=== PATIENT | female | born 1955 | race Caucasian/White ===

== ENCOUNTER 2017-04-21 11:40 | Observation (INO) | payer MEDICAID, OTHER ==
[~2017-04-21] VITALS: Ht 167.6 cm; Wt 58.0 kg
[2017-04-21] VITALS (8 sets, daily range): BP systolic 104–150; BP diastolic 53–63; PULSE 61–83; RESP 16–19; TEMP 98.1–98.6; O2SAT 97–99
[2017-04-21] MEDS ORDERED: SODIUM CHLOR 0.9% 1000 ML INJ 1,000 ML IV ONE ×2 (11:59→13:45)
[2017-04-21 12:31] LABS: AUTOMATED NEUTROPHIL # 4.4 TH/MM3 (1.8-7.7); BASOPHIL % 0.6 % (0.0-2.0); EOSINOPHIL # 0.1 TH/MM3 (0-0.4); EOSINOPHIL % 1.1 % (0.0-4.0); HEMATOCRIT 40.2 % (35.0-46.0); HEMO FLAGS DIFF FINAL; LYMPH % 16.8 % (9.0-44.0); MEAN CELL VOLUME 91.7 FL (80.0-100.0); MEAN CORPUSCULAR HEMOGLOBIN 30.2 PG (27.0-34.0); MONO % 8.6 % (0.0-8.0); NEUT % 72.9 % (16.0-70.0); PLATELET COUNT 196 TH/MM3 (150-450); RED BLOOD COUNT 4.39 MIL/MM3 (4.00-5.30); RED CELL DISTRIBUTION WIDTH 14.2 % (11.6-17.2)
[2017-04-21 12:32] LABS: APTT (PATIENT) 28.1 SEC (24.3-30.1); PROTHROMBIN TIME - PATIENT 10.7 SEC (9.8-11.6)
--- NOTE | 2017-04-21 12:41 | PD ---
HPI Chief Complaint: Abnormal Results Time Seen by Provider: 12:11 Travel History International Travel<30 days: No Contact w/Intl Traveler<30days: No Traveled to known affect area: No History of Present Illness HPI 61-year-old white female patient arrives in the emergency department for evaluation of hypotension. She was referred here from her primary care physician's office today. Patient is brought in by her [id number]. However patient lives with her sister who who is not present currently but is her power of process analyst. Patient has an extensive psychiatric history and is on psychiatric medication after having "a mental breakdown" in 1993. Patient denies any chest pain, shortness of breath, fever, chills, malaise or weakness. Patient denies any cardiac history but states she has a family history of heart disease. Patient denies any abdominal pain, nausea, vomiting or diarrhea. Patient states she has intermittent burning on urination for several days. No CVA tenderness, or history of nephrolithiasis. PFSH Past Medical History Arthritis: Yes Diabetes: No Medical other: Yes (PSORIASIS) Tetanus Vaccination: > 5 Years Influenza Vaccination: No ?: Not Menopausal: Yes Past Surgical History Surgical History: No Previous Surgery Social History Alcohol Use: No Tobacco Use: Yes (08/04 PPD) Substance Use: No Allergies-Medications (Allergen,Severity, Reaction): Coded Allergies: penicillin G (Unverified Allergy, Mild, 03/17/17) Reported Meds & Prescriptions Reported Meds & Active Scripts Active Review of Systems Except as stated in HPI: all other systems reviewed are Neg Genitourinary: Positive: Dysuria, Incontinence Physical Exam Exam Limitations: Poor Historian Narrative GENERAL: Well-nourished, well-developed patient 61-year-old female in no acute distress. SKIN: Focused skin assessment warm/dry. Psoriasis rash to left lateral lower back and bilateral upper extremities. HEAD: Normocephalic. Atraumatic EYES: No scleral icterus. No injection or drainage. NECK: Supple, trachea midline. No JVD or lymphadenopathy. CARDIOVASCULAR: Regular rate and rhythm without murmurs, gallops, or rubs. RESPIRATORY: Breath sounds equal bilaterally. No accessory muscle use. GASTROINTESTINAL: Abdomen soft, non-tender, nondistended. MUSCULOSKELETAL: No cyanosis, or edema. BACK: Nontender without obvious deformity. No CVA tenderness. Data Data Last Documented VS Vital Signs Date Time Temp Pulse Resp B/P (MAP) Pulse Ox O2 Delivery O2 Flow Rate FiO2 04/21/17 13:38 81 18 121/60 (80) 87 18 120/59 (79) 99 18 104/55 (71) 04/21/17 12:03 95 Room Air 04/21/17 11:42 98.6 Orders Orders Electrocardiogram (04/21/17 11:59) Complete Blood Count With Diff (04/21/17 11:59) Comprehensive Metabolic Panel (04/21/17 11:59) Prothrombin Time / Inr (Pt) (04/21/17 11:59) Act Partial Throm Time (Ptt) (04/21/17 11:59) Lactic Acid Sepsis Protocol (04/21/17 11:59) Urinalysis - C+S If Indicated (04/21/17 11:59) Blood Culture (04/21/17 11:59) Sodium Chlor 0.9% 1000 Ml Inj (Ns 1000 M (04/21/17 11:59) Orthostatic Vital Signs (04/21/17 12:48) Sodium Chlor 0.9% 1000 Ml Inj (Ns 1000 M (04/21/17 13:45) Chest, Single Ap (04/21/17 13:47) Ct Brain W/O Iv Contrast(Rout) (04/21/17 15:36) Comprehensive Metabolic Panel (04/22/17 06:00) Free Thyroxine (T4) (04/22/17 06:00) Hemoglobin (Hgb) A1c (04/22/17 06:00) Magnesium (Mg) (04/22/17 06:00) Phosphorus (Po4) (04/22/17 06:00) Thyroid Stimulating Hormone (04/22/17 06:00) Complete Blood Count With Diff (04/22/17 06:00) Place In Observation (04/21/17 ) Code Status (04/21/17 16:07) Vital Signs (Adult) Q4H (04/21/17 16:07) Neuro Checks Q4H (04/21/17 16:07) Activity Oob With Assistance (04/21/17 16:07) Vehicle Assembler / Telemetry .CONTINUOUS (04/21/17 16:07) Intake + Output PHYLICIA.QSHIFT (04/21/17 16:07) Diet Regular Basic (04/21/17 Dinner) Sodium Chlor 0.9% 1000 Ml Inj (Ns 1000 M (04/21/17 16:07) Sodium Chloride 0.9% Flush (Ns Flush) (04/21/17 16:15) Sodium Chloride 0.9% Flush (Ns Flush) (04/21/17 21:00) Acetaminophen (Tylenol) (04/21/17 16:15) Ondansetron Inj (Zofran Inj) (04/21/17 16:15) Prochlorperazine Supp (Compazine Supp) (04/21/17 16:15) Creatine Kinase (Cpk) (04/21/17 16:07) Creatine Kinase (Cpk) (04/21/17 22:07) Troponin I (04/21/17 16:07) Troponin I (04/21/17 22:07) Electrocardiogram (04/21/17 16:07) Electrocardiogram (04/21/17 22:07) Resp Oxygen Erwin C Titrat 1-4 L (04/21/17 ) Pt Request For Service (04/21/17 16:07) Ot Request For Service (04/21/17 16:07) Case Management Consult (04/21/17 16:07) Scd Bilateral/Knee High PHYLICIA.BID (04/21/17 16:07) Cem Bilateral/Knee High PHYLICIA.QSHIFT (04/21/17 16:15) Acetaminophen (Tylenol) (04/21/17 16:15) Tramadol (Ultram) (04/21/17 16:15) Tramadol (Ultram) (04/21/17 16:15) Naloxone Inj (Narcan Inj) (04/21/17 16:15) Docusate Sodium-Senna (Blanca-Colace) (04/21/17 21:00) Magnesium Hydroxide Liq (Milk Of Magnesi (04/21/17 16:15) Sennosides (Senokot) (04/21/17 16:15) Bisacodyl Supp (Dulcolax Supp) (04/21/17 16:15) Lactulose Liq (Lactulose Liq) (04/21/17 16:15) Vital Signs (Adult) Q4H (04/21/17 16:10) Sodium Chloride 0.9% Flush (Ns Flush) (04/21/17 16:15) Sodium Chloride 0.9% Flush (Ns Flush) (04/21/17 21:00) Drug Screen, Random Urine (04/21/17 16:10) Echo 2d Comp With Doppler (04/21/17 ) Us Carotid Arteries Comp Bilat (04/21/17 ) Resp Oxygen Erwin C Titrat 1-4 L (04/21/17 ) Labs Laboratory Tests Test 04/21/17 12:05 04/21/17 12:10 04/21/17 13:35 White Blood Count 6.0 TH/MM3 Red Blood Count 4.39 MIL/MM3 Hemoglobin 13.3 GM/DL Hematocrit 40.2 % Mean Corpuscular Volume 91.7 FL Mean Corpuscular Hemoglobin 30.2 PG Mean Corpuscular Hemoglobin Concent 33.0 % Red Cell Distribution Width 14.2 % Platelet Count 196 TH/MM3 Mean Platelet Volume 8.0 FL Neutrophils (%) (Auto) 72.9 % Lymphocytes (%) (Auto) 16.8 % Monocytes (%) (Auto) 8.6 % Eosinophils (%) (Auto) 1.1 % Basophils (%) (Auto) 0.6 % Neutrophils # (Auto) 4.4 TH/MM3 Lymphocytes # (Auto) 1.0 TH/MM3 Monocytes # (Auto) 0.5 TH/MM3 Eosinophils # (Auto) 0.1 TH/MM3 Basophils # (Auto) 0.0 TH/MM3 CBC Comment DIFF FINAL Differential Comment Prothrombin Time 10.7 SEC Prothromb Time International Ratio 1.0 RATIO Activated Partial Thromboplast Time 28.1 SEC Blood Urea Nitrogen 8 MG/DL Creatinine 0.49 MG/DL Random Glucose 78 MG/DL Total Protein 7.9 GM/DL Albumin 3.3 GM/DL Calcium Level 9.1 MG/DL Alkaline Phosphatase 126 U/L Aspartate Amino Transf (AST/SGOT) 28 U/L Alanine Aminotransferase (ALT/SGPT) 17 U/L Total Bilirubin 0.5 MG/DL Sodium Level 133 MEQ/L Potassium Level 4.6 MEQ/L Chloride Level 99 MEQ/L Carbon Dioxide Level 29.3 MEQ/L Anion Gap 5 MEQ/L Estimat Glomerular Filtration Rate 129 ML/MIN Lactic Acid Level 1.7 mmol/L Urine Color LIGHT-YELLOW Urine Turbidity CLEAR Urine pH 6.0 Urine Specific [place] 1.004 Urine Protein NEG mg/dL Urine Glucose (UA) NEG mg/dL Urine Ketones NEG mg/dL Urine Occult Blood NEG Urine Nitrite NEG Urine Bilirubin NEG Urine Urobilinogen LESS THAN 2.0 MG/DL Urine Leukocyte Esterase NEG Urine WBC LESS THAN 1 /hpf Urine Squamous Epithelial Cells <1 /hpf Microscopic Urinalysis Comment CATH-CULT NOT IND MDM Medical Decision Making Medical Screen Exam Complete: Yes Emergency Medical Condition: Yes Medical Record Reviewed: Yes Differential Diagnosis UTI versus sepsis versus hypertension versus arrhythmia versus dehydration Narrative Course 61-year-old female patient presents emergency department for evaluation of hypotension after being referred by her primary care. Patient was sent with a note from her primary care documenting the blood pressure taken there was 74/53 however on arrival her blood pressure in triage was 105/53. Patient denies any history of hypertension and does not believe she is on any medications that would cause hypotension. Multiple attempts were made to contact the primary care via phone but were unsuccessful. Patient denies any chest pain, shortness of breath, fevers, chills, malaise, abdominal pain, nausea, vomiting or weakness. Patient states she has had intermittent burning with urination for several days. Patient is incontinent of urine at times and wears depends. EKG , CBC, CMP, PT/INR, lactate, UA, blood cultures head CT without contrast and orthostatic vital signs ordered and pending. 1 L IV normal saline bolus ordered. Chest x-ray added per Dr. Bennett recommendation. Orthostatic vital signs showed a drop in blood pressure from supine to standing position. Another 1 L normal saline IV bolus ordered. EKG shows sinus rhythm with heart rate at 72 CBC shows no acute abnormality CMP shows hyponatremia at 133 otherwise shows no acute abnormality PT/INR shows no acute abnormality LACTIC ACID normal limits at 1.7 UA shows no acute abnormality BLOOD CULTURES ordered and pending. CXR shows no acute cardiopulmonary abnormalities CT Head shows no acute intracranial abnormality. Fluid in the right maxillary sinus most characteristic of sinusitis. Patient unable to ambulate independently with a steady gait. Patient lightheaded and dizzy when standing and walking. Residents paged for admission. Dr. Engel accepted admission. Patient will be admitted to the hospital for observation Diagnosis Primary Impression: Dizziness Additional Impression: Orthostatic hypotension Admitting Information Admitting Physician Requests: Observation Cassie Green Apr 21, 2017 12:41
[2017-04-21 13:01] LABS: ALT (GPT) 17 U/L (10-53); ANION GAP 5 MEQ/L (5-15); AST (GOT) 28 U/L (15-37); BICARBONATE 29.3 MEQ/L (21.0-32.0); BLOOD UREA NITROGEN 8 MG/DL (7-18); CHLORIDE 99 MEQ/L (98-107); GLOMERULAR FILTRATION RATE 129 ML/MIN (>89); SODIUM (NA) 133 MEQ/L (136-145)
[2017-04-21 13:02] LABS: POTASSIUM 4.6 MEQ/L (3.5-5.1)
[2017-04-21 13:03] LABS: ALKALINE PHOSPHATASE 126 U/L (45-117); TOTAL BILIRUBIN ADULT 0.5 MG/DL (0.2-1.0)
[2017-04-21 14:11] LABS: BLOOD, URINE NEG (NEG); GLUCOSE,URINE NEG (NEG); KETONE, URINE NEG (NEG); NITRITE,URINE NEG (NEG); SQUAMOUS EPITHELIAL CELL URINE <1 /hpf (0-5); URINE COLOR LIGHT-YELLOW (YELLW/STRAW)
[2017-04-21 14:16] LABS: COMMENT (UR) CATH-CULT NOT IND; CULTURE IF INDICATED CATH CULTURE NOT IND
--- NOTE | 2017-04-21 14:21 | RADRPT ---
EXAM DATE/TIME: 04/21/2017 14:04 [facility] COMPARISON: No previous studies available for comparison. INDICATIONS : High blood pressure, congestion, short of breath. MEDICAL HISTORY : Hypertension. SURGICAL HISTORY : None. ENCOUNTER: Initial ACUITY: 1 day PAIN SCORE: 0/10 LOCATION: Bilateral chest FINDINGS: A single view of the chest demonstrates the lungs to be symmetrically aerated without evidence of mas s, infiltrate or effusion. The cardiomediastinal contours are unremarkable. Osseous structures are intact. CONCLUSION: 1. No acute cardiopulmonary findings. 2. Degenerative changes in the shoulders bilaterally. Sha Torres MD on April 21, 2017 at 14:19 Board Certified Radiologist. This report was verified electronically.
--- NOTE | 2017-04-21 16:12 | RADRPT ---
EXAM DATE/TIME: 04/21/2017 15:54 [facility] COMPARISON: No previous studies available for comparison. INDICATIONS : Confusion with dizziness, low blood pressure. RADIATION DOSE: 56.35 CTDIvol (mGy) MEDICAL HISTORY : None SURGICAL HISTORY : None. ENCOUNTER: Initial ACUITY: 1 day PAIN SCALE: 4/10 LOCATION: Bilateral cranial TECHNIQUE: Multiple contiguous axial images were obtained of the head. Using automated exposure control and adj ustment of the mA and/or kV according to patient size, radiation dose was kept as low as reasonably a chievable to obtain optimal diagnostic quality images. DICOM format image data is available electro nically for review and comparison. FINDINGS: CEREBRUM: The ventricles are normal for age. No evidence of midline shift, mass lesion, hemorrhage or acute in farction. No extra-axial fluid collections are seen. POSTERIOR FOSSA: The cerebellum and brainstem are intact. The 4th ventricle is midline. The cerebellopontine angle i s unremarkable. EXTRACRANIAL: The visualized portion of the orbits is intact. Fluid in right maxillary sinus. SKULL: The calvaria is intact. No evidence of skull fracture. CONCLUSION: 1. No acute intracranial abnormality. Fluid in right maxillary sinus most characteristic of sinusitis . Deformity left mandibular head. Irineo Oneill MD on April 21, 2017 at 16:08 Board Certified Radiologist. This report was verified electronically.
[2017-04-21] MEDS ORDERED: BISACODYL 10 MG SUPP RECTAL PRN (16:15)
[2017-04-21] MEDS ORDERED: PROCHLORPERAZINE 25 MG SUPP RECTAL PRN (16:15)
[2017-04-21] MEDS ORDERED: SODIUM CHLORIDE 0.9% FLUSH 10 ML FLUSH IV FLUSH PRN ×2 (16:15)
[2017-04-21] MEDS ORDERED: SENNOSIDES 8.6 MG TAB PO PRN (16:15)
[2017-04-21] MEDS ORDERED: MAGNESIUM HYDROXIDE SUSP 30 ML CUP PO PRN (16:15)
[2017-04-21] MEDS ORDERED: LACTULOSE SYRUP 20 GM/30 ML CUP PO PRN (16:15)
[2017-04-21] MEDS ORDERED: ACETAMINOPHEN 325 MG TAB PO PRN (16:15)
[2017-04-21] MEDS ORDERED: ONDANSETRON HCL 4 MG/2 ML VIAL IVP PRN (16:15)
[2017-04-21] MEDS ORDERED: traMADol HCL 50 MG TAB PO PRN ×2 (16:15)
[2017-04-21] MEDS ORDERED: NALOXONE HCL 0.4 MG/ML AMP IV PUSH PRN (16:15)
[2017-04-21] MEDS ORDERED: BUSP30TA PO (17:02)
[2017-04-21] MEDS ORDERED: DICL75TA PO (17:02)
[2017-04-21] MEDS ORDERED: HALO5TAB PO (17:02)
[2017-04-21] MEDS ORDERED: PAXI20TA10 PO (17:02)
[2017-04-21] MEDS ORDERED: RISP4TAB41 PO (17:02)
[2017-04-21] MEDS ORDERED: ZANT150T2 PO (17:02)
--- NOTE | 2017-04-21 17:07 | HHI.HP ---
[facility]ician Unknown Admission Diagnosis dizziness, orthostatic hypertension Diagnoses: (1) Rheumatoid arthritis Diagnosis: Secondary (2) Orthostatic hypotension Diagnosis: Principal (3) Dizziness Diagnosis: Principal (4) Dehydration Diagnosis: Principal (5) Nicotine dependence Diagnosis: Secondary (6) Dysuria Diagnosis: Secondary (7) Psychotic disorder Diagnosis: Secondary Chief Complaint: Dizziness and hypotension. Travel History International Travel<30 Days: No Contact w/Intl Traveler <30 Da: No Traveled to Known Affected Are: No History of Present Illness Written by Jeferson Oquendo PA-C, acting as scribe for Dr. Tashi Engel on 04/21/17 at 16:54. Ms. Glaser is 61 years old, , with history of bilateral cataracts, psoriasis, rheumatoid arthritis, and psychotic disorder. Ms. Glaser was at her primary care physician's office (Nahid Ronquillo M.D.) for regularly scheduled appointment on 04/21/17. While there she is reported to have had a blood pressure of 80/53. Dr. Ronquillo who sent her to [facility] for further evaluation and treatment. Ms. Glaser reported that over the course of the past 2-3 years she has had difficulty with balance and has "been falling into people". She noted that her daily fluid intake is three 12 ounce bottles of water along with 1 cup of coffee in the morning as well as several sodas. She also has reported having burning urination for the last several days. Upon interview, Ms. Glaser reported dizziness, unsteady gait, and sense of weakness. She denied fever, nausea, vomiting, diarrhea, poor appetite, body aches, abdominal pain, chest pain, shortness of breath, and cough. She did endorse psoriasis "all over my body" as well as rheumatoid arthritis affecting both hands. Patient reported having broken teeth and prefers a soft diet. She stated she eats until she feels full. Medical record indicated that she is incontinent of urine and wears depends. A 10 point review of systems was conducted and, except as noted above, was negative. PT AND OT TO EVAL AND TREAT, ECHO, CAROTIDS Review of Systems Constitutional: COMPLAINS OF: Fatigue, Dizziness, DENIES: Diaphoretic episodes , Fever, Weight gain, Weight loss, Chills Endocrine: DENIES: Abnorml menstrual pattern, Heat/cold intolerance, Polydipsia Eyes: COMPLAINS OF: Vision loss (CATARACTS BL), DENIES: Blurred vision, Diplopia, Eye inflammation, Eye pain Ears, nose, mouth, throat: DENIES: Tinnitus, Hearing loss, Vertigo, Running Nose, Epistaxis, Sinus Pain Respiratory: DENIES: Apneas, Cough, Snoring, Wheezing Cardiovascular: COMPLAINS OF: Syncope, DENIES: Chest pain, Palpitations Gastrointestinal: DENIES: Abdominal pain, Black stools, Bloody stools, Constipation, Anorexia Genitourinary: COMPLAINS OF: Urgency, DENIES: Abnormal vaginal bleeding, Dysmenorrhea, Hematuria Musculoskeletal: DENIES: Joint pain, Muscle aches Integumentary: DENIES: Abnormal pigmentation, Pruritus Hematologic/lymphatic: DENIES: Bruising, Lymphadenopathy Immunologic/allergic: DENIES: Eczema, Urticaria Neurologic: DENIES: Abnormal gait, Headache, Localized weakness Psychiatric: COMPLAINS OF: Anxiety, Mood changes, Depression, DENIES: Confusion Except as stated in HPI: all other systems reviewed are Neg Past Family Social History Past Medical History bilateral cataracts, psoriasis, rheumatoid arthritis, psychotic disorder Past Surgical History Surgical history was denied. Reported Medications Reported Meds & Active Scripts Active Reported Diclofenac Sodium DR (Diclofenac Sodium) 75 Mg Tabdr 75 Mg PO BID PRN Haloperidol 5 Mg Tab 5 Mg PO HS Zantac (Ranitidine HCl) 150 Mg Tab 150 Mg PO BID Buspirone (Buspirone HCl) 30 Mg Tab 30 Mg PO TID Risperdal (Risperidone) 4 Mg Tab 2 Mg PO TID Paxil (Paroxetine HCl) 20 Mg Tablet 20 Mg PO HS Allergies: Coded Allergies: penicillin G (Unverified Allergy, Mild, 03/17/17) Active Ordered Medications Current Medications Medications (Trade) Dose Ordered Sig/Omid Route Start Time Stop Time Status Last Admin Sodium Chloride 1,000 ml @ 125 mls/hr Q8H IV 04/21/17 16:07 UNV (NS Flush) 2 ml UNSCH PRN IV FLUSH 04/21/17 16:15 UNV (NS Flush) 2 ml BID IV FLUSH 04/21/17 21:00 UNV (Tylenol) 650 mg Q4H PRN PO 04/21/17 16:15 UNV (Zofran Inj) 4 mg Q6H PRN IVP 04/21/17 16:15 UNV (Compazine Supp) 25 mg Q12H PRN OR 04/21/17 16:15 UNV (Tylenol) 650 mg Q6H PRN PO 04/21/17 16:15 UNV (Ultram) 50 mg Q4H PRN PO 04/21/17 16:15 UNV (Ultram) 100 mg Q4H PRN PO 04/21/17 16:15 UNV (Narcan Inj) 0.4 mg UNSCH PRN IV PUSH 04/21/17 16:15 UNV (Blanca-Colace) 1 tab BID PO 04/21/17 21:00 UNV (Milk Of Magnesia Liq) 30 ml Q12H PRN PO 04/21/17 16:15 UNV (Senokot) 17.2 mg Q12H PRN PO 04/21/17 16:15 UNV (Dulcolax Supp) 10 mg DAILY PRN RECTAL 04/21/17 16:15 UNV (Lactulose Liq) 30 ml DAILY PRN PO 04/21/17 16:15 UNV (NS Flush) 2 ml UNSCH PRN IV FLUSH 04/21/17 16:15 UNV (NS Flush) 2 ml BID IV FLUSH 04/21/17 21:00 UNV Family History Patient endorsed family history of heart disease. Social History Alcohol use was denied. Patient denied lifelong history of illicit/recreational drug use. Patient reported smoking cigarettes from [id number]. Current nicotine use is 15 cigarellos from 2001 to present. Physical Exam Vital Signs Vital Signs Date Time Temp Pulse Resp B/P (MAP) Pulse Ox O2 Delivery O2 Flow Rate FiO2 04/21/17 16:43 97 21 04/21/17 13:38 81 18 121/60 (80) 87 18 120/59 (79) 99 18 104/55 (71) 04/21/17 12:03 75 18 95 Room Air 04/21/17 11:42 98.6 83 16 105/53 (70) 98 Physical Exam GENERAL: This is a well-nourished, well-developed patient, in no apparent distress. SKIN: Psoriasis rash noted on back and both upper extremities. Cool and dry. HEAD: Atraumatic. Normocephalic. EYES: Pupils equal round and reactive. Patient with bilateral cataracts. ENT: Nose without bleeding or purulent drainage. Airway patent. Many teeth missing, several that are present are broken. Poor dentition NECK: Trachea midline. No lymphadenopathy. Supple and nontender. CARDIOVASCULAR: Regular rate and rhythm without murmurs, gallops, or rubs. S1- S2 no S3 or S4 no heave or thrill or rub or gallop RESPIRATORY: Clear to auscultation. Breath sounds equal bilaterally. No wheezes , rales, or rhonchi. GASTROINTESTINAL: Abdomen soft, non-tender, nondistended. No hepato- splenomegaly or guarding. MUSCULOSKELETAL: Extremities without clubbing, cyanosis, or edema. No joint tenderness, effusion, or edema noted. NEUROLOGICAL: Awake and alert. Cranial nerves II through XII intact. Motor and sensory grossly within normal limits. Five out of 5 muscle strength in all muscle groups. Speech was clear and fluent. Insight and judgment is okay Mood and behavior somewhat appropriate Laboratory Laboratory Tests Test 04/21/17 12:05 04/21/17 12:10 04/21/17 13:35 White Blood Count 6.0 Red Blood Count 4.39 Hemoglobin 13.3 Hematocrit 40.2 Mean Corpuscular Volume 91.7 Mean Corpuscular Hemoglobin 30.2 Mean Corpuscular Hemoglobin Concent 33.0 Red Cell Distribution Width 14.2 Platelet Count 196 Mean Platelet Volume 8.0 Neutrophils (%) (Auto) 72.9 Lymphocytes (%) (Auto) 16.8 Monocytes (%) (Auto) 8.6 Eosinophils (%) (Auto) 1.1 Basophils (%) (Auto) 0.6 Neutrophils # (Auto) 4.4 Lymphocytes # (Auto) 1.0 Monocytes # (Auto) 0.5 Eosinophils # (Auto) 0.1 Basophils # (Auto) 0.0 CBC Comment DIFF FINAL Differential Comment Prothrombin Time 10.7 Prothromb Time International Ratio 1.0 Activated Partial Thromboplast Time 28.1 Blood Urea Nitrogen 8 Creatinine 0.49 Random Glucose 78 Total Protein 7.9 Albumin 3.3 Calcium Level 9.1 Alkaline Phosphatase 126 Aspartate Amino Transf (AST/SGOT) 28 Alanine Aminotransferase (ALT/SGPT) 17 Total Bilirubin 0.5 Sodium Level 133 Potassium Level 4.6 Chloride Level 99 Carbon Dioxide Level 29.3 Anion Gap 5 Estimat Glomerular Filtration Rate 129 Lactic Acid Level 1.7 Urine Color LIGHT-YELLOW Urine Turbidity CLEAR Urine pH 6.0 Urine Specific [place] 1.004 Urine Protein NEG Urine Glucose (UA) NEG Urine Ketones NEG Urine Occult Blood NEG Urine Nitrite NEG Urine Bilirubin NEG Urine Urobilinogen LESS THAN 2.0 Urine Leukocyte Esterase NEG Urine WBC LESS THAN 1 Urine Squamous Epithelial Cells <1 Microscopic Urinalysis Comment CATH-CULT NOT IND Date/Time Source Procedure Growth Status 04/21/17 12:05 Blood Peripheral Aerobic Blood Culture Pending Received 04/21/17 12:05 Blood Peripheral Anaerobic Blood Culture Pending Received Result Diagram: 04/21/17 1205 04/21/17 1205 Imaging Last Impressions Head CT 04/21/17 1536 Signed Impressions: Service Date/Time: Friday, April 21, 2017 15:54 - CONCLUSION: 1. No acute intracranial abnormality. Fluid in right maxillary sinus most characteristic of sinusitis. Deformity left mandibular head. Irineo Oneill MD Chest X-Ray 04/21/17 1347 Signed Impressions: Service Date/Time: Friday, April 21, 2017 14:04 - CONCLUSION: 1. No acute cardiopulmonary findings. 2. Degenerative changes in the shoulders bilaterally. MD Eugenie Lukei VTE Risk Assessment Caprini VTE Risk Assessment: Mod/High Risk (score >= 2) Caprini Risk Assessment Model Point Value = 1 Point Value = 2 Point Value = 3 Point Value = 5 Age 41-60 Minor surgery BMI > 25 kg/m2 Swollen legs Varicose veins or History of unexplained or recurrent spontaneous Oral contraceptives or hormone replacement Sepsis (< 1 month) Serious lung disease, including pneumonia (< 1 month) Abnormal pulmonary function Acute myocardial infarction Congestive heart failure (< 1 month) History of inflammatory bowel disease Medical patient at bed rest Age 61-74 Arthroscopic surgery Major open surgery (> 45 min) Laparoscopic surgery (> 45 min) Malignancy Confined to bed (> 72 hours) Immobilizing plaster cast Central venous access Age >= 75 History of VTE Family history of VTE Factor V Leiden Prothrombin [id number] Lupus anticoagulant Anticardiolipin antibodies Elevated serum homocysteine Heparin-induced thrombocytopenia Other congenital or acquired thrombophilia Stroke (< 1 month) Elective arthroplasty Hip, pelvis, or leg fracture Acute spinal cord injury (< 1 month) Prophylaxis Regimen Total Risk Factor Score Risk Level Prophylaxis Regimen 0-1 Low Early ambulation 2 Moderate Order ONE of the following: *Sequential Compression Device (SCD) *Heparin 5000 units SQ BID 3-4 Higher Order ONE of the following medications: *Heparin 5000 units SQ TID *Enoxaparin/Lovenox 40 mg SQ daily (WT < 150 kg, CrCl > 30 mL/min) *Enoxaparin/Lovenox 30 mg SQ daily (WT < 150 kg, CrCl > 10-29 mL/min) *Enoxaparin/Lovenox 30 mg SQ BID (WT < 150 kg, CrCl > 30 mL/min) AND/OR *Sequential Compression Device (SCD) 5 or more Highest Order ONE of the following medications: *Heparin 5000 units SQ TID (Preferred with Epidurals) *Enoxaparin/Lovenox 40 mg SQ daily (WT < 150 kg, CrCl > 30 mL/min) *Enoxaparin/Lovenox 30 mg SQ daily (WT < 150 kg, CrCl > 10-29 mL/min) *Enoxaparin/Lovenox 30 mg SQ BID (WT < 150 kg, CrCl > 30 mL/min) AND *Sequential Compression Device (SCD) Assessment and Plan Problem List: (1) Dehydration ICD Code: E86.0 - Dehydration Status: Acute (2) Nicotine dependence ICD Code: F17.200 - Nicotine dependence, unspecified, uncomplicated Status: Chronic (3) Psychotic disorder ICD Code: F29 - Unspecified psychosis not due to a substance or known physiological condition Status: Resolved (4) Dizziness ICD Code: R42 - Dizziness and giddiness Status: Acute (5) Orthostatic hypotension ICD Code: I95.1 - Orthostatic hypotension Status: Acute (6) Dysuria ICD Code: R30.0 - Dysuria Status: Acute Assessment and Plan Ms. Glaser is 61 years old, , with history of bilateral cataracts, psoriasis, rheumatoid arthritis, and psychotic disorder. Dizziness Orthostatic hypotension Dehydration -IV fluids -Monitor blood pressure -Morning labs -EKG -Echocardiogram - Ultrasound carotid studies -Patient educated about fluid intake -Neuro checks every 4 hours -Monitor I/O's Physical therapy and occupational therapy to eval and treat Nicotine dependence -Nicotine patch 14 mg transdermal Psychotic disorder -Stable -Haloperidol 5 mg by mouth at bedtime -Risperidone 2 mg by mouth 3 times a day -Buspirone 30 mg 3 by mouth times a day -Paxil 20 mg by mouth at bedtime Dysuria -Negative for UTI -Encourage fluids -IV fluids DVT prophylaxis -Out of bed with assistance -Ambulation Diet -Regular Physical therapy and occupational therapy to eval and treat regarding gait instability The exam, history, and the medical decision-making described in the above note were completed with the assistance of the mid-level provider. I reviewed and agree with the findings presented. I attest that I had a [id number] encounter with the patient on the same day, and personally performed and documented my assessment and findings in the medical record. Patient seen and examined with scribe and discussed with scribe as well as with family Code Status Full code Discussed Condition With Medical staff, patient and [id number] (at bedside). Discussed with patient and RN and ER as well as physician fleet administrative assistant Problem Qualifiers (1) Nicotine dependence: Qualified Codes: F17.210 - Nicotine dependence, cigarettes, uncomplicated (2) Psychotic disorder: Qualified Codes: F29 - Unspecified psychosis not due to a substance or known physiological condition Jeferson Oquendo Jr. Apr 21, 2017 17:07 Zay Engel DO Apr 21, 2017 17:37
--- NOTE | 2017-04-21 17:10 | PD ---
Physical Exam Date Seen by Provider: Apr 21, 2017 Time Seen by Provider: 15:00 Narrative I, Dr. Bennett, have reviewed the advance practice practitioner's documentation and am in agreement, met with the patient face to face, made the diagnosis, and the medical decision making was done by me. *My assessment and Findings: Patient seen and evaluated by me with nurse practitioner, please see nurse practitioner notes for more details. Patient has been sent by her primary care doctor for hypotension and complaints of dizziness. She is orthostatic in the ER. IV fluids have been initiated on her. She has no focal symptoms. Exam is essentially unremarkable otherwise. Lab work did not show significant metabolic issues or signs of sepsis. CAT scan is negative. EKG did not show dysrhythmias. Laboratory Tests Test 04/21/17 12:05 04/21/17 12:10 04/21/17 13:35 Neutrophils (%) (Auto) 72.9 % (16.0-70.0) Monocytes (%) (Auto) 8.6 % (0.0-8.0) Creatinine 0.49 MG/DL (0.50-1.00) Albumin 3.3 GM/DL (3.4-5.0) Alkaline Phosphatase 126 U/L (45-117) Sodium Level 133 MEQ/L (136-145) Last [address] 04/21/17 1536 Signed Impressions: Service Date/Time: Friday, April 21, 2017 15:54 - CONCLUSION: 1. No acute intracranial abnormality. Fluid in right maxillary sinus most characteristic of sinusitis. Deformity left mandibular head. Irnieo Oneill MD Chest X-Ray 04/21/17 1347 Signed Impressions: Service Date/Time: Friday, April 21, 2017 14:04 - CONCLUSION: 1. No acute cardiopulmonary findings. 2. Degenerative changes in the shoulders bilaterally. Sha Torres MD After IV fluid boluses were performed, patient was ambulated to the bathroom but was quite unsteady. At this point, there is concern of patient's steadiness and safety at home as well as concern of other underlying neurological processes. My plan would be to admit her for further evaluation and case was discussed with Dr. Engel for admission. Data Data Last Documented VS Vital Signs Date Time Temp Pulse Resp B/P (MAP) Pulse Ox O2 Delivery O2 Flow Rate FiO2 04/21/17 13:38 81 18 121/60 (80) 87 18 120/59 (79) 99 18 104/55 (71) 04/21/17 12:03 95 Room Air 04/21/17 11:42 98.6 Orders Orders Electrocardiogram (04/21/17 11:59) Complete Blood Count With Diff (04/21/17 11:59) Comprehensive Metabolic Panel (04/21/17 11:59) Prothrombin Time / Inr (Pt) (04/21/17 11:59) Act Partial Throm Time (Ptt) (04/21/17 11:59) Lactic Acid Sepsis Protocol (04/21/17 11:59) Urinalysis - C+S If Indicated (04/21/17 11:59) Blood Culture (04/21/17 11:59) Sodium Chlor 0.9% 1000 Ml Inj (Ns 1000 M (04/21/17 11:59) Orthostatic Vital Signs (04/21/17 12:48) Sodium Chlor 0.9% 1000 Ml Inj (Ns 1000 M (04/21/17 13:45) Chest, Single Ap (04/21/17 13:47) Ct Brain W/O Iv Contrast(Rout) (04/21/17 15:36) Comprehensive Metabolic Panel (04/22/17 06:00) Free Thyroxine (T4) (04/22/17 06:00) Hemoglobin (Hgb) A1c (04/22/17 06:00) Magnesium (Mg) (04/22/17 06:00) Phosphorus (Po4) (04/22/17 06:00) Thyroid Stimulating Hormone (04/22/17 06:00) Complete Blood Count With Diff (04/22/17 06:00) Place In Observation (04/21/17 ) Code Status (04/21/17 16:07) Vital Signs (Adult) Q4H (04/21/17 16:07) Neuro Checks Q4H (04/21/17 16:07) Activity Oob With Assistance (04/21/17 16:07) Account Executive / Telemetry .CONTINUOUS (04/21/17 16:07) Intake + Output PHYLICIA.QSHIFT (04/21/17 16:07) Diet Regular Basic (04/21/17 Dinner) Sodium Chlor 0.9% 1000 Ml Inj (Ns 1000 M (04/21/17 16:07) Sodium Chloride 0.9% Flush (Ns Flush) (04/21/17 16:15) Sodium Chloride 0.9% Flush (Ns Flush) (04/21/17 21:00) Acetaminophen (Tylenol) (04/21/17 16:15) Ondansetron Inj (Zofran Inj) (04/21/17 16:15) Prochlorperazine Supp (Compazine Supp) (04/21/17 16:15) Creatine Kinase (Cpk) (04/21/17 16:07) Creatine Kinase (Cpk) (04/21/17 22:07) Troponin I (04/21/17 16:07) Troponin I (04/21/17 22:07) Electrocardiogram (04/21/17 16:07) Electrocardiogram (04/21/17 22:07) Resp Oxygen Erwin C Titrat 1-4 L (04/21/17 ) Pt Request For Service (04/21/17 16:07) Ot Request For Service (04/21/17 16:07) Case Management Consult (04/21/17 16:07) Scd Bilateral/Knee High PHYLICIA.BID (04/21/17 16:07) Cem Bilateral/Knee High PHYLICIA.QSHIFT (04/21/17 16:15) Acetaminophen (Tylenol) (04/21/17 16:15) Tramadol (Ultram) (04/21/17 16:15) Tramadol (Ultram) (04/21/17 16:15) Naloxone Inj (Narcan Inj) (04/21/17 16:15) Docusate Sodium-Senna (Blanca-Colace) (04/21/17 21:00) Magnesium Hydroxide Liq (Milk Of Magnesi (04/21/17 16:15) Sennosides (Senokot) (04/21/17 16:15) Bisacodyl Supp (Dulcolax Supp) (04/21/17 16:15) Lactulose Liq (Lactulose Liq) (04/21/17 16:15) Vital Signs (Adult) Q4H (04/21/17 16:10) Sodium Chloride 0.9% Flush (Ns Flush) (04/21/17 16:15) Sodium Chloride 0.9% Flush (Ns Flush) (04/21/17 21:00) Drug Screen, Random Urine (04/21/17 16:10) Echo 2d Comp With Doppler (04/21/17 ) Us Carotid Arteries Comp Bilat (04/21/17 ) Resp Oxygen Erwin C Titrat 1-4 L (04/21/17 ) Admit Order (Ed Use Only) (04/21/17 16:26) Labs Laboratory Tests Test 04/21/17 12:05 04/21/17 12:10 04/21/17 13:35 White Blood Count 6.0 TH/MM3 Red Blood Count 4.39 MIL/MM3 Hemoglobin 13.3 GM/DL Hematocrit 40.2 % Mean Corpuscular Volume 91.7 FL Mean Corpuscular Hemoglobin 30.2 PG Mean Corpuscular Hemoglobin Concent 33.0 % Red Cell Distribution Width 14.2 % Platelet Count 196 TH/MM3 Mean Platelet Volume 8.0 FL Neutrophils (%) (Auto) 72.9 % Lymphocytes (%) (Auto) 16.8 % Monocytes (%) (Auto) 8.6 % Eosinophils (%) (Auto) 1.1 % Basophils (%) (Auto) 0.6 % Neutrophils # (Auto) 4.4 TH/MM3 Lymphocytes # (Auto) 1.0 TH/MM3 Monocytes # (Auto) 0.5 TH/MM3 Eosinophils # (Auto) 0.1 TH/MM3 Basophils # (Auto) 0.0 TH/MM3 CBC Comment DIFF FINAL Differential Comment Prothrombin Time 10.7 SEC Prothromb Time International Ratio 1.0 RATIO Activated Partial Thromboplast Time 28.1 SEC Blood Urea Nitrogen 8 MG/DL Creatinine 0.49 MG/DL Random Glucose 78 MG/DL Total Protein 7.9 GM/DL Albumin 3.3 GM/DL Calcium Level 9.1 MG/DL Alkaline Phosphatase 126 U/L Aspartate Amino Transf (AST/SGOT) 28 U/L Alanine Aminotransferase (ALT/SGPT) 17 U/L Total Bilirubin 0.5 MG/DL Sodium Level 133 MEQ/L Potassium Level 4.6 MEQ/L Chloride Level 99 MEQ/L Carbon Dioxide Level 29.3 MEQ/L Anion Gap 5 MEQ/L Estimat Glomerular Filtration Rate 129 ML/MIN Lactic Acid Level 1.7 mmol/L Urine Color LIGHT-YELLOW Urine Turbidity CLEAR Urine pH 6.0 Urine Specific [place] 1.004 Urine Protein NEG mg/dL Urine Glucose (UA) NEG mg/dL Urine Ketones NEG mg/dL Urine Occult Blood NEG Urine Nitrite NEG Urine Bilirubin NEG Urine Urobilinogen LESS THAN 2.0 MG/DL Urine Leukocyte Esterase NEG Urine WBC LESS THAN 1 /hpf Urine Squamous Epithelial Cells <1 /hpf Microscopic Urinalysis Comment CATH-CULT NOT IND MDM Medical Record Reviewed: Yes Supervised Visit with OMAR: Yes Diagnosis Primary Impression: Dizziness Additional Impression: Orthostatic hypotension Admitting Information Admitting Physician Requests: it Riccardo Bennett MD Apr 21, 2017 17:10
[2017-04-21] MEDS ORDERED: DICLOFENAC SODIUM 75 MG DELAYED RELEASE TAB PO PRN (17:15)
[2017-04-21] MEDS: SODIUM CHLOR 0.9% 1000 ML INJ 1,000 ML IV SCH (17:34)
[2017-04-21 17:49] LABS: CREATINE KINASE 74 U/L (26-192)
[2017-04-21] MEDS ORDERED: NICOTINE 14 MG/24 HR PATCH T-DERMAL ONE (18:00)
[2017-04-21 18:34] LABS: CREATINE KINASE 50 U/L (26-192)
--- NOTE | 2017-04-21 18:37 | RADRPT ---
EXAM DATE/TIME: 04/21/2017 17:54 [facility] COMPARISON: No previous studies available for comparison. INDICATIONS : Weakness. MEDICAL HISTORY : Arthritis. Tobacco use. Weakness. Psoriasis. SURGICAL HISTORY : None. ENCOUNTER: Initial ACUITY: 2 days PAIN SCORE: 2/10 LOCATION: Bilateral neck PEAK SYSTOLIC VELOCITIES (cm/sec): ICA/CCA RATIO: Right: 1.0 Left: 0.7 ICA: Right: 72.1 Left: 52.9 CCA: Right: 70.7 Left: 80.6 ECA: Right: 86.5 Left: 84.5 VERTEBRAL: Right: 54.5 antegrade Left: 53.7 antegrade Elevated flow velocities and ICA/CCA ratios have been found to correlate with increased degrees of vessel stenosis, calculated as percentage of diameter relative to a normal segment of distal ICA/CCA FINDINGS: RIGHT CAROTID: No significant stenosis is visualized. The waveforms are within normal limits. Calcified atheroscler otic plaque is noted within the carotid bulb. LEFT CAROTID: No significant stenosis is visualized. The waveforms are within normal limits. Calcified atheroscler otic plaque is noted within the carotid bulb. VERTEBRAL ARTERIES: Antegrade flow is seen in both vertebral arteries. MISCELLANEOUS: None. CONCLUSION: No hemodynamically significant stenosis. Jerry Marley MD on April 21, 2017 at 18:34 Board Certified Radiologist. This report was verified electronically.
[2017-04-21] MEDS: busPIRone HCL 10 MG TAB PO SCH (18:44)
[2017-04-21] MEDS: risperiDONE 1 MG TAB PO SCH (18:44)
[2017-04-21] MEDS: FAMOTIDINE 20 MG TAB PO SCH (20:26)
[2017-04-21] MEDS: DOCUSATE SODIUM 50 MG/SENNA 8.6 MG TAB PO SCH (20:26)
[2017-04-21] MEDS: ACETAMINOPHEN 325 MG TAB PO PRN (20:27)
[2017-04-21] MEDS: SODIUM CHLORIDE 0.9% FLUSH 10 ML FLUSH IV FLUSH SCH (20:28)
[2017-04-21] MEDS ORDERED: PARoxetine HCL 20 MG TAB PO SCH (21:00)
[2017-04-21] MEDS ORDERED: HALOPERIDOL 5 MG TAB PO SCH (21:00)
[2017-04-21] MEDS ORDERED: SODIUM CHLORIDE 0.9% FLUSH 10 ML FLUSH IV FLUSH SCH (21:00)
[2017-04-22] MEDS: SODIUM CHLOR 0.9% 1000 ML INJ 1,000 ML IV SCH ×2 (02:32→10:52)
[2017-04-22] MEDS: ACETAMINOPHEN 325 MG TAB PO PRN (04:09)
[2017-04-22 04:21] VITALS: BP 130/66; PULSE 66; RESP 17; TEMP 98.2; O2SAT 99
[2017-04-22 08:08] VITALS: BP_SYST 124; BP_SYST 137; BP_SYST 138; BP_DIAS 51; BP_DIAS 62; BP_DIAS 63; PULSE 68; RESP 16; TEMP 98.2; O2SAT 97
[2017-04-22 08:15] LABS: AUTOMATED NEUTROPHIL # 2.8 TH/MM3 (1.8-7.7); BASOPHIL % 0.9 % (0.0-2.0); EOSINOPHIL # 0.1 TH/MM3 (0-0.4); EOSINOPHIL % 2.3 % (0.0-4.0); HEMATOCRIT 38.6 % (35.0-46.0); HEMO FLAGS DIFF FINAL; LYMPH % 18.5 % (9.0-44.0); LYMPHOCYTE # 0.8 TH/MM3 (1.0-4.8); MEAN CELL VOLUME 91.9 FL (80.0-100.0); MEAN CORPUSCULAR HEMOGLOBIN 30.4 PG (27.0-34.0); MEAN CORPUSCULAR HGB CONC 33.1 % (32.0-36.0); NEUT % 69.3 % (16.0-70.0); PLATELET COUNT 171 TH/MM3 (150-450)
[2017-04-22 08:32] VITALS: PULSE 66
[2017-04-22 08:35] LABS: ALT (GPT) 13 U/L (10-53); ANION GAP 5 MEQ/L (5-15); AST (GOT) 11 U/L (15-37); BICARBONATE 28.7 MEQ/L (21.0-32.0); BLOOD UREA NITROGEN 4 MG/DL (7-18); CHLORIDE 107 MEQ/L (98-107); GLOMERULAR FILTRATION RATE 150 ML/MIN (>89); MAGNESIUM 2.1 MG/DL (1.5-2.5); POTASSIUM 3.6 MEQ/L (3.5-5.1); SODIUM (NA) 141 MEQ/L (136-145)
[2017-04-22] MEDS: DOCUSATE SODIUM 50 MG/SENNA 8.6 MG TAB PO SCH (08:35)
[2017-04-22] MEDS: FAMOTIDINE 20 MG TAB PO SCH (08:35)
[2017-04-22] MEDS: risperiDONE 1 MG TAB PO SCH ×2 (08:36→12:15)
[2017-04-22] MEDS: busPIRone HCL 10 MG TAB PO SCH ×2 (08:36→12:16)
[2017-04-22] MEDS: SODIUM CHLORIDE 0.9% FLUSH 10 ML FLUSH IV FLUSH SCH (08:36)
[2017-04-22 08:44] LABS: ALKALINE PHOSPHATASE 108 U/L (45-117); FREE T4 1.12 NG/DL (0.76-1.46); TOTAL BILIRUBIN ADULT 0.6 MG/DL (0.2-1.0)
[2017-04-22] MEDS ORDERED: REMOVE OLD PATCH T-DERMAL SCH (09:00)
[2017-04-22] MEDS ORDERED: NICOTINE 14 MG/24 HR PATCH T-DERMAL SCH (09:00)
--- NOTE | 2017-04-22 10:52 | HHI.PR ---
Subjective Remarks Follow up for dizziness, orthostatic hypotension. The patient reports feeling much better today. She states she ate her entire breakfast and feels great. She admits she wasn't eating well at home or staying hydrated. Discussed this is likely contributing to her symptoms, patient verbalized understanding. She has no other medical complaints at this time. She wants to go home today. Objective Vitals Vital Signs Date Time Temp Pulse Resp B/P (MAP) Pulse Ox O2 Delivery O2 Flow Rate FiO2 04/22/17 08:32 66 04/22/17 08:08 98.2 68 16 137/62 (87) 97 124/51 (75) 138/63 (88) 04/22/17 05:09 16 04/22/17 04:21 98.2 66 17 130/66 (87) 99 04/21/17 23:29 98.1 61 19 138/63 (88) 98 04/21/17 23:16 21 04/21/17 21:30 61 04/21/17 20:10 66 17 129/59 (82) 99 130/58 (82) 124/61 (82) 04/21/17 18:33 04/21/17 17:45 67 18 148/63 (91) 97 Room Air 04/21/17 16:43 97 21 04/21/17 14:30 70 18 150/61 (90) 97 Room Air 04/21/17 13:38 81 18 121/60 (80) 87 18 120/59 (79) 99 18 104/55 (71) 04/21/17 12:03 75 18 95 Room Air 04/21/17 11:42 98.6 83 16 105/53 (70) 98 I/O 04/21/17 04/21/17 04/21/17 04/22/17 04/22/17 04/22/17 07:00 15:00 23:00 07:00 15:00 23:00 Intake Total 2000 ml Balance 2000 ml Intake IV Total 2000 ml Result Diagram: 04/22/1772204/22/17722 Imaging Last Impressions Head CT 04/21/17 1536 Signed Impressions: Service Date/Time: Friday, April 21, 2017 15:54 - CONCLUSION: 1. No acute intracranial abnormality. Fluid in right maxillary sinus most characteristic of sinusitis. Deformity left mandibular head. Irineo Oneill MD Chest X-Ray 04/21/17 1347 Signed Impressions: Service Date/Time: Friday, April 21, 2017 14:04 - CONCLUSION: 1. No acute cardiopulmonary findings. 2. Degenerative changes in the shoulders bilaterally. Sha Torres MD Carotid Artery Ultrasound 04/21/17 0000 Signed Impressions: Service Date/Time: Friday, April 21, 2017 17:54 - CONCLUSION: No hemodynamically significant stenosis. Jerry Marley MD Objective Remarks GENERAL: Well-nourished, well-developed middle aged female patient in [place]. SKIN: Warm and dry. No rash. HEENT: Normocephalic. Atraumatic. Pupils equal and round. Mucous membranes pink and moist. CARDIOVASCULAR: Regular rate and rhythm. S1, S2 noted. No murmur appreciated. RESPIRATORY: No accessory muscle use. Clear to auscultation. Breath sounds equal bilaterally. GASTROINTESTINAL: Abdomen soft, non-tender, nondistended. Normoactive bowel sounds x4. MUSCULOSKELETAL: No obvious deformities. Extremities without clubbing, cyanosis , or edema. NEUROLOGICAL: Awake and alert. No obvious cranial nerve deficits. Motor grossly within normal limits. Normal speech. PSYCHIATRIC: Appropriate mood and affect; insight and judgment normal. Medications and IVs Current Medications Medications (Trade) Dose Ordered Sig/Omid Route Start Time Stop Time Status Last Admin Sodium Chloride 1,000 ml @ 125 mls/hr Q8H IV 04/21/17 16:07 04/22/17 02:32 (Tylenol) 650 mg Q4H PRN PO 04/21/17 16:15 (Zofran Inj) 4 mg Q6H PRN IVP 04/21/17 16:15 (Compazine Supp) 25 mg Q12H PRN RECTAL 04/21/17 16:15 (Tylenol) 650 mg Q6H PRN PO 04/21/17 16:15 04/22/17 04:09 (Ultram) 50 mg Q4H PRN PO 04/21/17 16:15 (Ultram) 100 mg Q4H PRN PO 04/21/17 16:15 (Narcan Inj) 0.4 mg UNSCH PRN IV PUSH 04/21/17 16:15 (Blanca-Colace) 1 tab BID PO 04/21/17 21:00 04/22/17 08:35 (Milk Of Magnesia Liq) 30 ml Q12H PRN PO 04/21/17 16:15 (Senokot) 17.2 mg Q12H PRN PO 04/21/17 16:15 (Dulcolax Supp) 10 mg DAILY PRN RECTAL 04/21/17 16:15 (Lactulose Liq) 30 ml DAILY PRN PO 04/21/17 16:15 (NS Flush) 2 ml UNSCH PRN IV FLUSH 04/21/17 16:15 (NS Flush) 2 ml BID IV FLUSH 04/21/17 21:00 (Buspar) 30 mg TID PO 04/21/17 18:00 04/22/17 08:36 (Haldol) 5 mg HS PO 04/21/17 21:00 04/21/17 20:25 (Paxil) 20 mg HS PO 04/21/17 21:00 (Pepcid) 20 mg BID PO 04/21/17 21:00 04/22/17 08:35 (risperDAL) 2 mg TID PO 04/21/17 18:00 04/22/17 08:36 (Habitrol 14 Mg Patch.24 Hr) 1 patch DAILY T-DERMAL 04/22/17 09:00 04/22/17 08:37 Miscellaneous Information 1 DAILY T-DERMAL 04/22/17 09:00 04/22/17 08:37 A/P Problem List: (1) Rheumatoid arthritis ICD Code: M06.9 - Rheumatoid arthritis, unspecified (2) Orthostatic hypotension ICD Code: I95.1 - Orthostatic hypotension Status: Acute (3) Dizziness ICD Code: R42 - Dizziness and giddiness Status: Acute (4) Dehydration ICD Code: E86.0 - Dehydration Status: Acute (5) Nicotine dependence ICD Code: F17.200 - Nicotine dependence, unspecified, uncomplicated Status: Chronic (6) Dysuria ICD Code: R30.0 - Dysuria Status: Acute (7) Psychotic disorder ICD Code: F29 - Unspecified psychosis not due to a substance or known physiological condition Status: Resolved Assessment and Plan 61 years old, , with history of bilateral cataracts, psoriasis, rheumatoid arthritis, and psychotic disorder. Dizziness: suspect multifactorial secondary to mild orthostatic hypotension and dehydration. patient admits to not eating/drinking well at home. -Given hydration with IV fluids -Monitor blood pressure, orthostatic hypotension resolved -Echocardiogram pending -Ultrasound carotid arteries unremarkable -Patient educated about fluid intake -Neuro checks every 4 hours, Monitor I/O's -Consult PT, recommends HH. -patient's symptoms much improved, stable for discharge after echo completed Nicotine dependence -student loan counselor on cessation -Nicotine patch Psychotic disorder: chronic, Stable -Continue patient's Haldol, Risperidone, Buspirone, and Paxil -outpatient f/up with psychiatry Dysuria: UA negative for UTI -Encourage fluids -Given IV fluids -symptoms resolved DVT prophylaxis -Ambulation Discharge Planning Discharge after echocardiogram completed. Patient wants to go home today. Case management consulted for [facility] arrangements. 1800hrs: Patient's echocardiogram resulted, shows EF 55-60%, trace MR, mod AR, trace TR. The patient feels great and adamantly wants to go home today. Again counseled on continuing oral hydration as this likely contributing to her symptoms. Patient states she already has a plan to drink 4 large containers of water daily. Will discharge home with C. Discharge patient to home with [facility] Condition on discharge: Improved Regular Diet as tolerated Ad [place] activity Rx written: no new meds Follow-up with primary care physician in 1 week Problem Qualifiers (1) Nicotine dependence: Qualified Codes: F17.210 - Nicotine dependence, cigarettes, uncomplicated (2) Psychotic disorder: Qualified Codes: F29 - Unspecified psychosis not due to a substance or known physiological condition Alisha Romero PA-C Apr 22, 2017 10:52
--- NOTE | 2017-04-22 10:54 | HHI.FF ---
Face to Face Verification Diagnosis: (1) Dizziness (2) Orthostatic hypotension (3) Dehydration (4) Psychotic disorder (5) Rheumatoid arthritis Physical Therapy Order: Evaluate and Treat, Improve ambulation, Strength and gait training Home Health Nursing Order: Medical education Signs/symptoms of disease process Nursing assessment with vital signs I have seen patient Malou Glaser on 04/22/17. My clinical findings support the need for the requested home health care services because: Deconditioned w/ increased weakness Limited ability to care for self Need for psychosocial assistance High risk of falls I certify that my clinical findings support that this patient is homebound because: Impaired cognitive ability/safety Unsteady gait/balance Unsafe to leave home unassisted Alisha Romero PA-C Apr 22, 2017 10:54 am
[2017-04-22 11:57] VITALS: BP 141/65; PULSE 67; RESP 18; TEMP 98.3; O2SAT 97
[2017-04-22 16:24] VITALS: BP 141/65; PULSE 74; RESP 18; TEMP 98.4; O2SAT 98
[2017-04-22 16:29] LABS: HEMOGLOBIN A1a 0.9 %; HEMOGLOBIN A1b 1.5 %; HEMOGLOBIN Ao 87.7 %; HEMOGLOBIN LA1C 1.7 %; HEMOGLOBIN P3 3.1 %
[2017-04-22 16:56] VITALS: PULSE 76
--- NOTE | 2017-04-22 17:18 | ECHRPT ---
Indication: syncope CONCLUSIONS The left ventricular systolic function is normal with an estimated ejection fraction in the range of 55-60%. Normal left ventricular size. Wall thickness is measured at the upper limits of normal. No regional wall motion abnormalities are present. Trace mitral valve regurgitation. Mitral annular calcification is present. Aortic valve sclerosis is present. Moderate aortic valve regurgitation. There is trace tricuspid valve regurgitation. The estimated pulmonary arterial pressure is 38 mmHg. BP: 150 / 61 HR: 99 Rhythm: Sinus MEASUREMENTS (Male / Female) Normal Values Technical Quality:Fair 2D ECHO LV Diastolic Diameter PLAX 4.6 cm 4.2 - 5.9 / 3.9 - 5.3 cm LV Systolic Diameter PLAX 3.2 cm IVS Diastolic Thickness 1.2 cm 0.6 - 1.0 / 0.6 - 0.9 cm LVPW Diastolic Thickness 1.3 cm 0.6 - 1.0 / 0.6 - 0.9 cm LV Relative Wall Thickness 0.5 RV Internal Dim ED PLAX 2.1 cm LVOT Diameter 2.0 cm LA Systolic Diameter LX 3.5 cm 3.0 - 4.0 / 2.7 - 3.8 cm LV Ejection Fraction MOD 4C 56.1 % LV Cardiac Index MOD 4C 2785.4 cm/minm LV Ejection Fraction 4C AL 56.9 % LV Cardiac Index 4C AL 2924.9 cm/minm M-MODE Aortic Root Diameter MM 2.7 cm AV Cusp Separation MM 1.6 cm DOPPLER AV Peak Velocity 225.0 cm/s AV Peak Gradient 20.3 mmHg AI Peak Velocity 477.0 cm/s AI Peak Gradient 91.0 mmHg AI Pressure Half Time 419.5 ms LVOT Peak Velocity 139.0 cm/s LVOT Peak Gradient 7.7 mmHg AV Area Cont Eq pk 1.9 cm MV Peak Velocity 189.0 cm/s MV Peak Gradient 14.3 mmHg MV Mean Velocity 94.3 cm/s MV Mean Gradient 4.0 mmHg MV Area PHT 3.5 cm Mitral E Point Velocity 128.0 cm/s Mitral A Point Velocity 153.0 cm/s Mitral E to A Ratio 0.8 LV E' Lateral Velocity 6.4 cm/s Mitral E to LV E' Lateral Ratio 19.9 LV E' Septal Velocity 5.4 cm/s Mitral E to LV E' Septal Ratio 23.9 TR Peak Velocity 265.0 cm/s TR Peak Gradient 28.1 mmHg Right Atrial Pressure 10.0 mmHg Pulmonary Artery Systolic Pressu 38.1 mmHg Right Ventricular Systolic Press 38.1 mmHg PV Peak Velocity 96.4 cm/s PV Peak Gradient 3.7 mmHg FINDINGS LEFT VENTRICLE The left ventricular systolic function is normal with an estimated ejection fraction in the range of 55-60%. Normal left ventricular size. Wall thickness is measured at the upper limits of normal. No regional wall motion abnormalities are present. RIGHT VENTRICLE Normal right ventricular size and systolic function. LEFT ATRIUM The left atrial size is normal. RIGHT ATRIUM The right atrial size is normal. ATRIAL SEPTUM Normal atrial septal thickness without atrial level shunting by limited color doppler interrogation. AORTA The aortic root and proximal ascending aorta are normal in size on limited imaging. MITRAL VALVE Trace mitral valve regurgitation. Mitral annular calcification is present. AORTIC VALVE Aortic valve sclerosis is present. Moderate aortic valve regurgitation. TRICUSPID VALVE There is trace tricuspid valve regurgitation. The estimated pulmonary arterial pressure is 38.1 mmHg. PULMONARY VALVE No pulmonary valve regurgitation or stenosis. VESSELS The inferior vena cava is normal in size. PERICARDIUM No pericardial effusion. Irasema Gonzalez MD, FACC (Electronically Signed) Final Date:22 April 2017 17:17
--- NOTE | 2017-04-22 20:49 | EKG ---
Date Performed: 04/21/2017 Time Performed: 22:10:45 PTAGE: 61 years EKG: Sinus rhythm POSSIBLE ANTERIOR MYOCARDIAL INFARCTION ABNORMAL ECG PREVIOUS TRACING : 04/21/2017 18.30 Compared to prior tracing no significant change DOCTOR: Jose Antonio Mujica Interpretating Date/Time 04/22/2017 20:45:09
--- NOTE | 2017-04-22 20:54 | EKG ---
Date Performed: 04/21/2017 Time Performed: 18:30:49 PTAGE: 61 years EKG: Sinus rhythm NORMAL ECG PREVIOUS TRACING : 04/21/2017 12.19 Compared to prior tracing no significant change DOCTOR: Jose Antonio Mujica Interpretating Date/Time 04/22/2017 20:48:21
--- NOTE | 2017-04-22 21:03 | EKG ---
Date Performed: 04/21/2017 Time Performed: 12:19:41 PTAGE: 61 years EKG: Sinus rhythm BORDERLINE LEFT AXIS DEVIATION BORDERLINE ECG PREVIOUS TRACING : 06/10/1998 09.06 Compared to prior tracing no significant change DOCTOR: Jose Antonio Mujica Interpretating Date/Time 04/22/2017 20:54:17
== END 2017-04-22 18:04 | disposition home or self-care (01) ==
LOC: NEPC 11:40 → NEDA 16:28 → NEPHCDU 18:59
PROVIDERS: ADMIT Internal Medicine; ATTEND Internal Medicine
DX: I95.1 Orthostatic hypotension (principal); R32 Unspecified urinary incontinence; M06.9 Rheumatoid arthritis, unspecified; E86.0 Dehydration; F29 Unspecified psychosis not due to a substance or known physiological condition; R30.0 Dysuria; F17.200 Nicotine dependence, unspecified, uncomplicated; E87.1 Hypo-osmolality and hyponatremia; R94.31 Abnormal electrocardiogram [ECG] [EKG]; L40.9 Psoriasis, unspecified; Z79.899 Other long term (current) drug therapy
CPT/HCPCS: 70450; 71010; 80053; 80307; 81001; 82550; 83036; 83605; 83735; 84100; 84439; 84443; 84484; 85025; 85610; 85730; 87040; 93005; 93306; 93880; 96360; 96361; 97162; 97166; 99285; G0378; G8987; G8988; J7030

== ENCOUNTER → 2017-07-22 | Day surgery (SDC) | payer MEDICAID ==
[~2017-07-22] VITALS: Ht 167.6 cm; Wt 60.2 kg
[~2017-07-22] MED LIST: AZIT250T3 PO; BENZ0.5T PO; BUSP30TA PO; CHLORHEXIDINE GLUCONATE 2 % 1 PACK (2 CLOTHS) TOPICAL PRN; CIPR0.3S2 LEFT EYE; DICL75TA PO; EPINEPHrine HCL PF/SF (1:1000) 1 MG/ML AMP I-OCULAR ONE; EPINEPHrine-Lidocaine/BSS (PF/SF) 4-120 mg/16 mL OPTH SYR LEFT EYE ONE; EPINEPHrine-Lidocaine/BSS (PF/SF) 4-120 mg/16 mL OPTH SYR ONE; HALO5TAB PO; LACTATED RINGER'S 1000 ML IV PRN; METOPROLOL TARTRATE 25 MG TAB PO PRN; PAXI20TA26 PO; POVIDONE IODINE 5% (ANTISEPSIS KIT) 4 APPLICATIONS EACH NARE PRN; RISP3 PO; RISP4TAB41 PO; SODIUM CHLORID 0.9% 500 ML IV PRN; TOBRAMYCIN/DEXAMETHASONE OPTH OINT 3.5 GM TUBE ONE; TRIA.1%T TOPICAL; VISCOAT OPHT IRRIG SOLN 0.75 ML SYRINGE ONE; ZANT150T2 PO
[2017-07-22] MEDS: CYCLOPENTOLATE HCL 1% OPHT SOLN 2 ML BTL LEFT EYE SCH ×3 (09:27→09:37)
[2017-07-22] MEDS: TETRACAINE 0.5% OPTH SOLN 4 ML BTL LEFT EYE SCH ×3 (09:27→09:37)
[2017-07-22] MEDS: PHENYLEPHRINE HCL 10% OPTH SOLN 5 ML BTL LEFT EYE SCH ×3 (09:27→09:37)
[2017-07-22] MEDS: TROPICAMIDE 1% OPHT SOLN 15 ML BTL LEFT EYE SCH ×3 (09:27→09:37)
[2017-07-22 10:53] VITALS: PULSE 90
--- NOTE | 2017-07-22 10:54 | PD.OP ---
Operative Report Date of Surgery: Jul 22, 2017 Preoperative Diagnosis: (1) Mature cataract Postoperative Diagnosis: (1) Pseudophakia of left eye Procedure: phacoemulsification and intraocular lens implant left eye Anesthesia: General Surgeon: Bobbi Sheets Contemporary Or Modern Dancer(s): none Operation and Findings: Patient was consented for surgery and taken back to the operating room. She was put under general anesthesia and prepped and draped in the usual sterile fashion for ophthalmic surgery. A wire lid speculum was placed in the left eye. A paracentesis incision was created at the 5 o'clock position on the limbus. Vision blue dye, intracameral epishugarcaine, and viscoelastic was injected into the anterior chamber. The main incision was created at the 2 o'clock position on the limbus with a 2.4 mm keratome. A continuous curvilinear capsulorrhexis was made on the anterior lens capsule. Hydrodissection was used to separate the lens from the capsule. Phacoemulsification was used to remove the lens nucleus material. Irrigation and aspiration was used to remove the remaining cortical material. The lens implant ([id number] [id number] D SN [id number]) was placed in the capsular bag. Viscoelastic was removed with irrigation and aspiration. The incisions were irrigated and found to be watertight. Tobradex ointment, a patch, and shield were placed on the left eye. The patient was sent to PACU in stable condition. Bobbi Sheets MD Jul 22, 2017 10:54
[2017-07-22 11:15] VITALS: PULSE 85; TEMP 97.8
[2017-07-22 11:48] VITALS: BP 103/56; PULSE 85; RESP 16; O2SAT 97
== END | disposition home or self-care (01) ==
LOC: PHSDC 08:59
PROVIDERS: ATTEND Ophthalmology
DX: H26.9 Unspecified cataract (principal)
CPT/HCPCS: 00142; 66984; J0171; J7040; V2632

== ENCOUNTER → 2017-10-28 | Day surgery (SDC) | payer MEDICAID ==
[~2017-10-28] VITALS: Ht 167.6 cm; Wt 68.0 kg
[~2017-10-28] MED LIST changes: +ASPI-516 CHEW; -AZIT250T3 PO; +CYCLOPENTOLATE HCL 1% OPHT SOLN 2 ML BTL ONE; +DIFL0.0512 LEFT EYE; -EPINEPHrine-Lidocaine/BSS (PF/SF) 4-120 mg/16 mL OPTH SYR LEFT EYE ONE; +EPINEPHrine-Lidocaine/BSS (PF/SF) 4-120 mg/16 mL OPTH SYR RIGHT EYE ONE; +MANNITOL 12.5 GM/50 ML VIAL IV PRN; +NEPA0.3D LEFT EYE; +PHENYLEPHRINE HCL 10% OPTH SOLN 5 ML BTL ONE; -RISP4TAB41 PO; +SODIUM CHLOR 0.9% 250 ML INJ 250 ML ONE; +SODIUM CHLORID 0.9% 500 ML INJ 500 ML ONE; +TETRACAINE 0.5% OPTH SOLN 2 ML BTL ONE; +TROPICAMIDE 1% OPHT SOLN 15 ML BTL ONE; +acetaZOLAMIDE SEQUELS 500 MG SUSTAINED RELEASE CAP ONE
[2017-10-28] MEDS: CYCLOPENTOLATE HCL 1% OPHT SOLN 2 ML BTL RIGHT EYE SCH ×3 (08:45→08:55)
[2017-10-28] MEDS: TETRACAINE 0.5% OPTH SOLN 4 ML BTL RIGHT EYE SCH ×3 (08:45→08:55)
[2017-10-28] MEDS: PHENYLEPHRINE HCL 10% OPTH SOLN 5 ML BTL RIGHT EYE SCH ×3 (08:45→08:55)
[2017-10-28] MEDS: TROPICAMIDE 1% OPHT SOLN 15 ML BTL RIGHT EYE SCH ×3 (08:45→08:55)
[2017-10-28 10:18] VITALS: PULSE 80
[2017-10-28 10:45] VITALS: TEMP 97.6
[2017-10-28 11:25] VITALS: BP 91/40; PULSE 80; RESP 14; O2SAT 96
--- NOTE | 2017-10-28 12:35 | PD.OP ---
Operative Report Date of Surgery: Oct 28, 2017 Preoperative Diagnosis: (1) Mature cataract Postoperative Diagnosis: (1) Pseudophakia of right eye Procedure: phacoemulsification and intraocular lens implant right eye Anesthesia: General anesthesia Surgeon: Bobbi Sheets Log Chain Feeder(s): none Operation and Findings: Patient was consented for surgery and taken back to the operating room. She was put under general anesthesia and prepped and draped in the usual sterile fashion for ophthalmic surgery. A wire lid speculum was placed in the right eye. A paracentesis incision was created at the 11 o'clock position on the limbus. Vision blue dye, intracameral Epishugarcaine, and viscoelastic was injected into the anterior chamber. The main incision was created at the 8 o' clock position on the limbus with a 2.4 mm keratome. A continuous curvilinear capsulorrhexis was made on the anterior lens capsule. Hydrodissection was used to separate the lens from the capsule. Phacoemulsification was used to remove the lens nucleus material. Irrigation and aspiration was used to remove the remaining cortical material. The lens implant ([id number]) was placed in the capsular bag. Viscoelastic was removed with irrigation and aspiration. The incisions were irrigated and found to be watertight. Tobradex ointment, a patch, and shield were placed on the right eye. The patient was sent to PACU in stable condition. Bobbi Sheets MD Oct 28, 2017 12:35
== END | disposition home or self-care (01) ==
LOC: PHSDC 08:22
PROVIDERS: ATTEND Ophthalmology
DX: H26.9 Unspecified cataract (principal)
CPT/HCPCS: 00142; 66984; J0171; J2150; J7040; J7050; V2632